=== PATIENT | male | born 2000 | race Caucasian/White ===

== ENCOUNTER 2018-03-02 20:04 | Emergency (ER) | payer SELFPAY ==
[~2018-03-02] VITALS: Ht 167.6 cm; Wt 71.8 kg
[2018-03-02 21:15] VITALS: BP 126/57
[2018-03-02] MEDS ORDERED: SILVER SULFADIAZINE 1 % TOPICAL CREAM 50GM TOP ONE (21:30)
== END 2018-03-02 21:55 | disposition home or self-care (01) ==
LOC: ER 20:04
DX: T23.201A Burn of second degree of right hand, unspecified site, initial encounter (principal); X19.XXXA Contact with other heat and hot substances, initial encounter; Y93.89 Activity, other specified; Y99.8 Other external cause status; Y92.89 Other specified places as the place of occurrence of the external cause
CPT/HCPCS: 16000